=== PATIENT | female | born 1950 | race Hispanic/Latino ===

== ENCOUNTER 2020-06-04 10:50 | Emergency (ER) | payer MEDICARE ==
[2020-06-04] MEDS ORDERED: Aspirin Chewable 81 MG TAB ONE (11:01)
[2020-06-04] MEDS ORDERED: Ondansetron PF 4 MG/2 ML Vial ONE (11:05)
[2020-06-04 11:07] LABS: #Basophils 0.1 thou/uL (0.0-0.2); #Eosinphils 0.3 thou/uL (0.0-0.7); #Lymphocytes 3.2 thou/uL (1.20-3.40); #Monocytes 0.9 thou/uL (0.11-0.59); #Neutrophils 8.4 thou/uL (1.40-6.50); %Basophils 0.8 % (0.0-1.0); %Eosinophils 2.1 % (0.0-10.0); %Lymphocytes 24.9 % (21.0-51.0); %Monocytes 6.6 % (0.0-10.0); %Neutrophils 65.6 % (42.0-75.0); Hemoglobin 13.4 g/dL (12.0-16.0); Mean Corpuscular HGB CONC 30.9 g/dL (32.0-36.0); Mean Corpuscular Hemoglobin 28.9 pg (27.0-31.0); Mean Corpuscular Volume 93.5 fL (78.0-98.0); Mean Platelet Volume 6.9 fL (7.4-10.4); Platelet Count 402 thou/uL (130-400); RBC Distribution Width 12.2 % (11.5-14.5); Red Blood Cell (RBC) Count 4.65 mill/uL (4.20-5.40); White Blood Cell (WBC) Count 12.8 thou/uL (4.8-10.8)
[2020-06-04] MEDS ORDERED: Heparin 5,000 UNITS/ML VIAL ONE (11:07)
[2020-06-04] MEDS ORDERED: Nitroglycerin 0.4 MG TAB (25 Tab Bottle) ONE (11:08)
[2020-06-04 11:12] LABS: Prothrombin Time 13.4 sec (12.0-14.7)
[2020-06-04] MEDS ORDERED: Sodium Chloride 0.9% 1,000 ML ONE (11:16)
[2020-06-04 11:21] LABS: ALT (SGPT) 13 U/L (8-55); AST (SGOT) 13 U/L (5-34); Albumin 4.1 g/dL (3.4-4.8); Alkaline Phosphatase 87 U/L (40-110); Anion Gap 17 mmol/L (10-20); BUN (Urea Nitrogen) 15 mg/dL (9.8-20.1); Bilirubin, Total 0.5 mg/dL (0.2-1.2); Calc. Creatinine Clearance 0 mL/min (70-130); Calcium 9.9 mg/dL (7.8-10.44); Carbon Dioxide 23 mmol/L (23-31); Chloride 102 mmol/L (98-107); Estimated GFR-MDRD 55; Glucose 190 mg/dL (83-110); Potassium 3.6 mmol/L (3.5-5.1); Protein, Total 7.1 g/dL (6.0-8.3); Sodium 138 mmol/L (136-145)
[2020-06-04] MEDS ORDERED: Nitroglycerin 50 MG/250 ML BOT 0 ML ONE (11:31)
--- NOTE | 2020-06-04 13:25 | RAD ---
PORTABLE CHEST: DATE: 06/04/2020. PROVIDED CLINICAL HISTORY: Chest pain. FINDINGS: Comparison 12/07/2018. Evaluation is limited by patient body habitus. Cardiac and mediastinal silhouette is within normal l imits. Vascular calcifications are noted involving the aortic arch. No focal consolidation, pleural fluid, or pneumothorax apparent. IMPRESSION: No evidence for an acute cardiopulmonary process. POS: [facility]
== END 2020-06-04 11:41 | disposition short-term general hospital (02) ==
LOC: NAV ERS 10:50
DX: I21.9 Acute myocardial infarction, unspecified (principal); E11.9 Type 2 diabetes mellitus without complications; I10 Essential (primary) hypertension; E78.5 Hyperlipidemia, unspecified; Z79.84 Long term (current) use of oral hypoglycemic drugs
CPT/HCPCS: 36415; 71045; 80053; 83880; 84484; 85025; 85610; 85730; 93005; 96374; 96375; J1644; J2405; J7050